=== PATIENT | female | born 1965 | race Caucasian/White ===

== ENCOUNTER 2016-08-21 10:43 | Inpatient (IN) | payer OTHER ==
[2016-08-21] MEDS ORDERED: ONDANSETRON DISINTEGRATING 4 MG TAB PO PRN (13:25)
[2016-08-21] MEDS ORDERED: ACETAMINOPHEN 325 MG TAB PO PRN (13:25)
[2016-08-21] MEDS ORDERED: ONDANSETRON 4 MG/2 ML VIAL IVP PRN (13:25)
[2016-08-21] MEDS ORDERED: NS 1,000 ML IV ONE ×2 (14:00→19:00)
[2016-08-21] MEDS ORDERED: OXYCODONE/APAP 5/325 TAB PO PRN (14:11)
[2016-08-21] MEDS ORDERED: oxyCODONE IR 5 MG TAB PO PRN (14:12)
[2016-08-21] MEDS ORDERED: LIDOCAINE/PRILOCAINE 1 EACH CRTUBE TP SCH (14:15)
--- NOTE | 2016-08-21 15:16 | GHP ---
[f rep st] HISTORY AND PHYSICAL DATE OF ADMISSION: 08/21/2016 CHIEF COMPLAINT: Presenting for chemotherapy. HISTORY OF PRESENT ILLNESS: A 50-year-old female with a history of mantle cell lymphoma, presenting for chemotherapy upon arrival to the floor. The patient is denying any shortness of breath, chest pain, lightheadedness, vision changes, dysphagia, chest pain. No nausea, vomiting, diarrhea, dysuri a, hematuria, lower extremity edema, myalgias, or rashes. She has had no known recent sick contacts . PAST MEDICAL HISTORY: Mantle cell lymphoma. SOCIAL HISTORY: Negative for tobacco and alcohol. She does use occasional CBD products to help wit h her appetite. FAMILY HISTORY: Positive for Hodgkin lymphoma. REVIEW OF SYSTEMS: A 10-point review of systems is negative with the exception of that reported in the HPI. PHYSICAL EXAMINATION: VITAL SIGNS: Blood pressure 105/70, heart rate 102, respiratory rate 18, 97% on room air, 36.7. GENERAL: This is a thin-appearing female in no acute distress. HEENT: Notabl e for moist mucous membranes. Eye exam is negative for any icterus. CARDIAC: Patient is regular r ate and rhythm. No murmurs, gallops, or rubs. PULMONARY: Clear to auscultation bilaterally. ANU ROINTESTINAL: Positive bowel sounds. Abdomen soft and nontender in all 4 quadrants. MUSCULOSKELET AL: Negative for any lower extremity edema. SKIN: Negative for any rashes. NEUROLOGIC: Patient is alert and oriented x3. PSYCHIATRIC: She is pleasant and cooperative on interview and examinatio n. DATA: White count is 11.6, hematocrit 30.6, platelets 157. ASSESSMENT AND PLAN: This is a 50-year-old female with a history of mantle cell presenting for chem otherapy. 1. Mantle cell lymphoma. Patient is presenting for her [facility]. She has received CHOP already. The patient is without complaint. Will follow chemotherapy orders per Oncology. 2. Severe protein-calorie malnutrition. Patient has had approximately an 8 pounds weight loss in t he past several months. We will encourage nourishment and dietary consultation. 3. Tachycardia. I will order EKG. Suspect this is likely the stress of the acute presentation and nothing more. Patient has received normal saline pre-chemotherapy. Will continue to monitor. 4. Prophylaxis with Lovenox. 5. Diet: Regular. DISPOSITION: I expect greater than 2 midnights after she stabilized post chemotherapy. I discussed the case with Oncology. The patient will be admitted and initiate chemo today. /[id number]/MODL
[2016-08-21] MEDS ORDERED: FAMOTIDINE 20 MG/NACL 50 ML IV SCH (15:30)
[2016-08-21] MEDS ORDERED: ACETAMINOPHEN 325 MG TAB PO SCH (15:30)
[2016-08-21] MEDS ORDERED: NS IV SCH ×2 (16:00→22:00)
[2016-08-21] MEDS ORDERED: RITUXIMAB IV SCH (16:00)
[2016-08-21] MEDS: DEXAMETHASONE 4 MG TAB PO SCH (16:23)
--- NOTE | 2016-08-21 16:37 | CPEKG ---
Heart Rate: 95 RR Interval: 632 P-R Interval: 116 QRSD Interval: 78 QT Interval: 384 QTC Interval: 483 P Quemado: 79 QRS Quemado: 76 T Wave Quemado: 57 EKG Severity - NORMAL ECG - EKG Impression: SINUS RHYTHM Electronically Signed By: Cj Ryan 22-Aug-2016 12:45:15
[2016-08-21] MEDS ORDERED: PALONOSETRON HCL 0.25 MG/5 ML VIAL IVP SCH (21:30)
[2016-08-21] MEDS ORDERED: FOSAPREPITANT 150 MG in NS 150 ML IV SCH (21:30)
[2016-08-21] MEDS ORDERED: CISPLATIN IV SCH (22:00)
[2016-08-21] MEDS: LORazepam 0.5 MG TAB PO SCH (22:31)
--- NOTE | 2016-08-21 23:22 | GCON ---
[f rep st] CONSULTATION ONCOLOGY INITIAL VISIT PRIMARY ONCOLOGIST: Dr. Carmelo Merino. REASON FOR VISIT: Chemotherapy for mantle cell lymphoma. HISTORY OF PRESENT ILLNESS: Roseline is a 50-year-old woman who was diagnosed in early July with a st age SOULEYMANE mantle cell lymphoma. Main symptoms she had at the time of diagnosis were crampy abdominal pain and [address] scan. She had splenomegaly in both the adenopathy. There was CD 20, CD 5 positive malignancy expressing cyclin D1, consistent with mantle cell lymphoma. She st arted on the regimen with rituximab plus CHOP, alternating with rituximab plus DHAP with Neulasta oreilly pport. She received the 1st cycle of CHOP and tolerated it reasonably well. She has stopped losing weight and is feeling better but has not been able to regain weight yet. She has no acute complain ts today. She is admitted today to start her 1st cycle of RDHAP. The only issue she had with the 1 st cycle was she did have some mild infusion reactions with rituximab. PAST MEDICAL HISTORY: She has no known drug allergies. MEDICATIONS: At home include Percocet as needed, omeprazole, Lamictal, lorazepam, prednisone with C HOP chemotherapy, bupropion, Ritalin, Nuvigil. PAST MEDICAL HISTORY: Chronic illnesses include depression and cancer as described above. PAST SURGICAL HISTORY: Includes laparoscopic surgery on her uterus. PRIMARY CARE PEDIATRICIAN HISTORY: She has been twice with 2 children. Went through menopause at age 46. SOCIAL HISTORY: She lives in [place] with her daughter and is a nurse at [employer]. She does not use IV drugs and does not smoke. She has a couple drinks a week. FAMILY HISTORY: Significant for father who had lymphoma and of multiple myeloma at age 90. Mo ther may have had a history of CLL. REVIEW OF SYSTEMS: Ten point review of systems performed, pertinent positives in HPI, otherwise neg ative. PHYSICAL EXAMINATION: VITAL SIGNS: Today temperature is 36.7, pulse 102, blood pressure 105/70. G ENERAL: She is a well-appearing woman in good spirits. No distress. HEENT: Sclerae nonicteric. Oral mucosa is unremarkable. LUNGS: Clear. CARDIAC: Mildly tachycardic but regular with just a s oft flow murmur. ABDOMEN: Soft, nontender. Spleen is still palpable but nontender. Port is in th e right upper chest area without signs of infection. NEUROLOGICAL: Grossly intact. LABS: White count 11,000, hemoglobin 9.4, platelet count 157,000. Chemistries and LFTs including c reatinine 0.7, otherwise unremarkable. LDH 521, it was a 1000 at the time of therapy. IMPRESSION: Stage IV mantle cell lymphoma on chemotherapy. PLAN: Admit her for rituximab plus DHAP. Cisplatin will be given over 24 hour infusion and high-do se cytarabine will be started on the 2nd day, given over 3 hours, 12 hours apart for just 2 doses. She also received dexamethasone for 4 days. Prior to starting the chemotherapy, she will receive ri tuximab and hopefully that will go better with fewer reactions than the 1st time. I will follow ananda ford with her while she is in the hospital. /[id number]/MODL
[2016-08-22] MEDS ORDERED: PALONOSETRON HCL 0.25 MG/5 ML VIAL IVP ONE (02:00)
[2016-08-22 04:56] LABS: % IMMATURE GRANULYOCYTES 1.2 % (0.0-1.1); ABSOLUTE IMMATURE GRANULOCYTES 0.19 10^3/uL (0.00-0.10); ADD DIFF? NO; ADD MORPH? NO; ADD SCAN? NO; ATYPICAL LYMPHOCYTE FLAG 30 (0-99); FRAGMENT RBC FLAG 0 (0-99); HEMATOCRIT 24.9 % (38.0-47.0); HEMOGLOBIN 7.5 g/dL (12.6-16.3); LEFT SHIFT FLG 10 (0-99); LIPEMIA HEMOLYSIS FLAG 80 (0-99); MEAN CELL HEMOGLOBIN 26.4 pg (27.9-34.1); MEAN CELL HEMOGLOBIN CONCENTR. 30.1 g/dL (32.4-36.7); MEAN CELL VOLUME 87.7 fL (81.5-99.8); MEAN PLATELET VOLUME 9.8 fL (8.7-11.7); PLATELET CLUMPS FLAG 0 (0-99); PLATELET COUNT 122 10^3/uL (150-400); RED BLOOD CELL COUNT 2.84 10^6/uL (4.18-5.33); RED CELL DISTRIBUTION WIDTH 19.2 % (11.5-15.2)
[2016-08-22 05:16] LABS: ALANINE AMINOTRANSFERASE 36 IU/L (9-52); ALKALINE PHOSPHATASE 113 IU/L (38-126); ASPARTATE AMINOTRANSFERASE 43 IU/L (14-46); BILIRUBIN,TOTAL 0.2 mg/dL (0.1-1.4); CALCIUM 8.5 mg/dL (8.5-10.4); CARBON DIOXIDE 23 mEq/l (22-31); CHLORIDE 108 mEq/L (97-110); CREATININE 0.6 mg/dL (0.6-1.0); GLOMERULAR FILTRATION RATE > 60; GLUCOSE 177 mg/dL (70-100); SODIUM 141 mEq/L (134-144); TOTAL PROTEIN 6.4 g/dL (6.3-8.2)
[2016-08-22 05:17] LABS: ANION GAP 10 mEq/L (8-16); POTASSIUM 3.6 mEq/L (3.5-5.2)
[2016-08-22] MEDS: prednisoLONE ACET 1% 5 ML OPHT.BTL EACHEYE SCH ×4 (06:36→23:33)
[2016-08-22] MEDS ORDERED: METHYLPHENIDATE HCL 20 MG PO SCH (09:00)
[2016-08-22] MEDS: buPROPion SR 150 MG TAB PO SCH (09:47)
[2016-08-22] MEDS: PANTOPRAZOLE SODIUM 40 MG TAB PO SCH (09:47)
[2016-08-22] MEDS: ENOXAPARIN 40 MG/0.4 ML SYR SC SCH (09:48)
[2016-08-22] MEDS: lamoTRIgine 100 MG TAB PO SCH (09:48)
[2016-08-22] MEDS: Armodafinil [Nuvigil 250mg] 250 MG PO SCH (12:30)
[2016-08-22] MEDS: METHYLPHENIDATE HCL 20 MG PO SCH (13:54)
--- NOTE | 2016-08-22 14:21 | SOAPPROG ---
SOLE[facility] Progress Note Assessment/Plan: E&M for Mantle Cell * Mantle Cell NHL on RCHOP/RDHAP: Day 2, cycle 2 of R-DHAP and doing well. Cisplatin ends early tomorrow morning and will start MAGALY-c after. She is to continue hi dose dex. * ADHD/Depression: would like her to take her home meds Subjective: No problems with chemotherapy. Denies n/v. Sisters with patient. Objective: Vital Signs Temp Pulse Resp BP Pulse Ox 36.7 C 108 H 16 104/69 96 08/22/16 12:31 08/22/16 12:31 08/22/16 12:31 08/22/16 12:31 08/22/16 12:31 Laboratory Results 08/22/16 04:00 08/22/16 04:00 08/21/16 08/22/16 08/23/16 05:59 05:59 05:59 Intake Total 1612.6 Output Total 475 Balance 1137.6 Physical Exam - Physical Exam General Appearance: no apparent distress Respiratory: normal breath sounds Cardiac/Chest: regular rate, rhythm Abdomen: non-tender, soft ICD10 Worksheet Patient Problems: Problems Problem Status Onset Mantle cell lymphoma of intra-abdominal lymph nodes Chronic
[2016-08-22] MEDS: DEXAMETHASONE 4 MG TAB PO SCH (15:42)
--- NOTE | 2016-08-22 16:56 | HOSPPROG ---
Hospitalist Progress Note Assessment/Plan: # Mantle Cell Lymphoma - patient tolerated chemotherapy overnight- WBC 15.5 this morning tolerating p.o. and without pain complaints - continue chemotherapy per Oncology # tachycardia- EKG ( personally reviewed and interpreted) sinus rhythm without acute changes oxygen saturations 95% on room air seems intermittent may be related to anxiety - encourage p.o. - monitor closely # prophylaxis Lovenox # diet regular # disposition greater than 2 midnights as the patient is requiring a full course chemotherapy I have discussed the case with the oncologist- patient is tolerating the 1st part of her treatment while Subjective: slept well Objective: Vital Signs Temp Pulse Resp BP Pulse Ox 36.8 C 102 H 16 106/58 L 95 08/22/16 16:26 08/22/16 16:26 08/22/16 16:26 08/22/16 16:26 08/22/16 16:26 Laboratory Results 08/22/16 04:00 08/22/16 04:00 08/21/16 08/22/16 08/23/16 05:59 05:59 05:59 Intake Total 1612.6 Output Total 475 Balance 1137.6 - Physical Exam Constitutional: cachectic Eyes: anicteric sclera Ears, Nose, Mouth, Throat: moist mucous membranes Cardiovascular: regular rate and rhythym Respiratory: no respiratory distress, no rales or rhonchi Gastrointestinal: normoactive bowel sounds, soft, non-tender abdomen Genitourinary: no bladder fullness Skin: warm, normal color Musculoskeletal: No asymmetric calves Neurologic: AAOx3 Psychiatric: interacting appropriately, not anxious Lymph, Heme, Immunologic: no cervical LAD ICD10 Worksheet Patient Problems: Problems Problem Status Onset Mantle cell lymphoma of intra-abdominal lymph nodes Chronic
[2016-08-22] MEDS: LORazepam 0.5 MG TAB PO SCH (20:55)
[2016-08-22] MEDS ORDERED: NS 1,000 ML IV ONE (22:00)
[2016-08-23] MEDS ORDERED: LORazepam 0.5 MG TAB PO ONE (04:30)
[2016-08-23] MEDS: prednisoLONE ACET 1% 5 ML OPHT.BTL EACHEYE SCH ×3 (05:41→17:11)
[2016-08-23] MEDS: lamoTRIgine 100 MG TAB PO SCH (08:16)
[2016-08-23] MEDS: PANTOPRAZOLE SODIUM 40 MG TAB PO SCH (08:16)
[2016-08-23] MEDS: buPROPion SR 150 MG TAB PO SCH (08:16)
[2016-08-23] MEDS: METHYLPHENIDATE HCL 20 MG PO SCH (08:23)
[2016-08-23 08:47] LABS: % IMMATURE GRANULYOCYTES 1.5 % (0.0-1.1); ABSOLUTE IMMATURE GRANULOCYTES 0.19 10^3/uL (0.00-0.10); ADD DIFF? NO; ADD MORPH? NO; ADD SCAN? NO; ATYPICAL LYMPHOCYTE FLAG 0 (0-99); FRAGMENT RBC FLAG 0 (0-99); HEMATOCRIT 23.9 % (38.0-47.0); HEMOGLOBIN 7.3 g/dL (12.6-16.3); LEFT SHIFT FLG 20 (0-99); LIPEMIA HEMOLYSIS FLAG 80 (0-99); MEAN CELL HEMOGLOBIN 26.7 pg (27.9-34.1); MEAN CELL HEMOGLOBIN CONCENTR. 30.5 g/dL (32.4-36.7); MEAN CELL VOLUME 87.5 fL (81.5-99.8); MEAN PLATELET VOLUME 9.7 fL (8.7-11.7); PLATELET CLUMPS FLAG 0 (0-99); PLATELET COUNT 110 10^3/uL (150-400); RED BLOOD CELL COUNT 2.73 10^6/uL (4.18-5.33); RED CELL DISTRIBUTION WIDTH 19.9 % (11.5-15.2)
[2016-08-23 09:00] LABS: ALANINE AMINOTRANSFERASE 47 IU/L (9-52); ALKALINE PHOSPHATASE 104 IU/L (38-126); ANION GAP 9 mEq/L (8-16); ASPARTATE AMINOTRANSFERASE 34 IU/L (14-46); BILIRUBIN,TOTAL 0.3 mg/dL (0.1-1.4); CALCIUM 8.4 mg/dL (8.5-10.4); CARBON DIOXIDE 25 mEq/l (22-31); CHLORIDE 109 mEq/L (97-110); CREATININE 0.6 mg/dL (0.6-1.0); GLOMERULAR FILTRATION RATE > 60; GLUCOSE 108 mg/dL (70-100); POTASSIUM 3.9 mEq/L (3.5-5.2); SODIUM 143 mEq/L (134-144); TOTAL PROTEIN 6.3 g/dL (6.3-8.2)
[2016-08-23] MEDS: ENOXAPARIN 40 MG/0.4 ML SYR SC SCH (09:44)
[2016-08-23] MEDS: CYTARABINE IV SCH ×2 (09:50→20:55)
[2016-08-23] MEDS: NS IV SCH ×2 (09:50→20:55)
--- NOTE | 2016-08-23 12:01 | HOSPPROG ---
Hospitalist Progress Note Assessment/Plan: # Mantle Cell Lymphoma - patient tolerated chemotherapy overnight- WBC 15->12 this morning tolerating p.o. and without pain complaints - continue chemotherapy per Oncology # tachycardia- HR fluctuating 80-> 120 EKG - sinus rhythm without acute changes oxygen saturations 95% on room air seems intermittent may be related to anxiety - encourage p.o. - monitor closely # prophylaxis Lovenox # diet regular # disposition greater than 2 midnights as the patient is requiring a full course chemotherapy I have discussed the case with the oncologist- continue current course - patient tolerating treatment well Subjective: denies pain Objective: Vital Signs Temp Pulse Resp BP Pulse Ox 36.8 C 123 H 16 100/78 91 L 08/23/16 08:17 08/23/16 10:20 08/23/16 08:17 08/23/16 08:17 08/23/16 10:20 Laboratory Results 08/23/16 08:18 08/23/16 08:18 08/22/16 08/23/16 08/24/16 05:59 05:59 05:59 Intake Total 1612.6 1960 1000 Output Total 475 2250 Balance 1137.6 -290 1000 - Physical Exam Constitutional: cachectic Eyes: anicteric sclera Ears, Nose, Mouth, Throat: moist mucous membranes Cardiovascular: tachycardia Respiratory: no respiratory distress, no rales or rhonchi Gastrointestinal: normoactive bowel sounds, soft, non-tender abdomen Genitourinary: no bladder fullness Skin: warm, normal color Musculoskeletal: No asymmetric calves Neurologic: AAOx3 Psychiatric: interacting appropriately Lymph, Heme, Immunologic: no cervical LAD ICD10 Worksheet Patient Problems: Problems Problem Status Onset Mantle cell lymphoma of intra-abdominal lymph nodes Chronic
[2016-08-23] MEDS: Armodafinil [Nuvigil 250mg] 250 MG PO SCH (12:54)
[2016-08-23] MEDS ORDERED: PROCHLORPERAZINE MALEATE 10 MG TAB PO PRN (14:45)
--- NOTE | 2016-08-23 14:48 | SOAPPROG ---
SOAP Progress Note Assessment/Plan: E&M for Mantle Cell * Mantle Cell NHL on RCHOP/RDHAP: Day 3, cycle 2 with R-DHAP and doing well. MAGALY -c finishes late tonight. She is to continue hi dose dex. * ADHD/Depression: would like her to take her home meds * Anemia: will give blood today as she may becoming more symptomatic. Subjective: Some fatigue and mild nausea. Insomnia from steroids. Objective: Vital Signs Temp Pulse Resp BP Pulse Ox 36.8 C 93 16 120/75 97 08/23/16 12:05 08/23/16 12:05 08/23/16 12:05 08/23/16 12:05 08/23/16 12:05 Laboratory Results 08/23/16 08:18 08/23/16 08:18 08/22/16 08/23/16 08/24/16 05:59 05:59 05:59 Intake Total 1612.6 1960 1300 Output Total 475 2250 200 Balance 1137.6 -290 1100 Physical Exam - Physical Exam General Appearance: no apparent distress EENT: pharynx normal Respiratory: lungs clear Cardiac/Chest: regular rate, rhythm Abdomen: non-tender, soft ICD10 Worksheet Patient Problems: Problems Problem Status Onset Mantle cell lymphoma of intra-abdominal lymph nodes Chronic
[2016-08-23] MEDS: LORazepam 0.5 MG TAB PO PRN (14:54)
[2016-08-23] MEDS: DEXAMETHASONE 4 MG TAB PO SCH (15:49)
[2016-08-23] MEDS ORDERED: diphenhydrAMINE 25 MG CAP PO ONE (17:00)
[2016-08-23] MEDS: LORazepam 0.5 MG TAB PO SCH (21:00)
[2016-08-24] MEDS: prednisoLONE ACET 1% 5 ML OPHT.BTL EACHEYE SCH ×2 (00:12→06:04)
[2016-08-24] MEDS: LORazepam 0.5 MG TAB PO PRN ×2 (03:41→09:43)
[2016-08-24 08:34] VITALS: BP 123/74; PULSE 76; RESP 18; TEMP 98.2; O2SAT 95
[2016-08-24] MEDS: PANTOPRAZOLE SODIUM 40 MG TAB PO SCH (09:01)
[2016-08-24] MEDS: lamoTRIgine 100 MG TAB PO SCH (09:01)
[2016-08-24] MEDS: buPROPion SR 150 MG TAB PO SCH (09:02)
[2016-08-24] MEDS: METHYLPHENIDATE HCL 20 MG PO SCH (09:03)
[2016-08-24] MEDS: ENOXAPARIN 40 MG/0.4 ML SYR SC SCH (09:04)
[2016-08-24 09:15] LABS: HEMATOCRIT 31.9 % (38.0-47.0); HEMOGLOBIN 10.2 g/dL (12.6-16.3); MEAN CELL HEMOGLOBIN 26.9 pg (27.9-34.1); MEAN CELL VOLUME 84.2 fL (81.5-99.8); RED BLOOD CELL COUNT 3.79 10^6/uL (4.18-5.33)
[2016-08-24 09:38] LABS: ANION GAP 10 mEq/L (8-16); CALCIUM 8.7 mg/dL (8.5-10.4); CARBON DIOXIDE 25 mEq/l (22-31); CHLORIDE 104 mEq/L (97-110); CREATININE 0.7 mg/dL (0.6-1.0); GLOMERULAR FILTRATION RATE > 60; GLUCOSE 95 mg/dL (70-100); POTASSIUM 4.4 mEq/L (3.5-5.2); SODIUM 139 mEq/L (134-144)
--- NOTE | 2016-09-21 10:35 | GDS ---
[f rep st] DISCHARGE SUMMARY DIAGNOSES: 1. Mantle cell lymphoma. 2. Sinus tachycardia. CONSULTATIONS: Dr. Aldrich of Oncology. HOSPITAL COURSE: The patient is a 50-year-old woman with a known mantle cell lymphoma. She was adm itted to the hospital for planned scheduled chemotherapy which she received without any complication s or significant side effects. She did have some sinus tachycardia briefly during her hospital stay , but there was no sign of infection, sepsis, bleeding, or other concerning etiology for that. She was discharged to home in stable condition on the 24 of August. Follow up with the [facility] in 3 days after discharge. She understands to notify her oncology team for any fevers, respiratory or other concerning symptoms. /[id number]/MODL
== END 2016-08-24 13:29 | disposition home or self-care (01) | DRG 846 ==
LOC: F1N 12:16
PROVIDERS: ADMIT Hospitalist; ATTEND Hospitalist
DX: Z51.11 Encounter for antineoplastic chemotherapy (principal); C83.13 Mantle cell lymphoma, intra-abdominal lymph nodes; E43 Unspecified severe protein-calorie malnutrition; R00.0 Tachycardia, unspecified; F90.9 Attention-deficit hyperactivity disorder, unspecified type; F32.9 Major depressive disorder, single episode, unspecified; D64.9 Anemia, unspecified
CPT/HCPCS: J1200; J1453; J1642; J1650; J2469; J9060; J9100; J9310; P9040

== ENCOUNTER 2016-10-02 08:19 | Inpatient (IN) | payer OTHER ==
[2016-10-02] MEDS ORDERED: LIDOCAINE/PRILOCAINE 1 EACH CRTUBE TP ONE (12:15)
[2016-10-02 13:29] LABS: % IMMATURE GRANULYOCYTES 0.8 % (0.0-1.1); ABSOLUTE IMMATURE GRANULOCYTES 0.08 10^3/uL (0.00-0.10); ADD DIFF? NO; ADD MORPH? YES; ADD SCAN? NO; ATYPICAL LYMPHOCYTE FLAG 70 (0-99); FRAGMENT RBC FLAG 0 (0-99); HEMATOCRIT 27.6 % (38.0-47.0); HEMOGLOBIN 8.8 g/dL (12.6-16.3); LEFT SHIFT FLG 0 (0-99); LIPEMIA HEMOLYSIS FLAG 80 (0-99); MEAN CELL HEMOGLOBIN 28.4 pg (27.9-34.1); MEAN CELL HEMOGLOBIN CONCENTR. 31.9 g/dL (32.4-36.7); MEAN PLATELET VOLUME 9.5 fL (8.7-11.7); PLATELET CLUMPS FLAG 10 (0-99); PLATELET COUNT 146 10^3/uL (150-400)
[2016-10-02 13:30] LABS: RED CELL DISTRIBUTION WIDTH 20.9 % (11.5-15.2)
[2016-10-02] MEDS ORDERED: ACETAMINOPHEN 325 MG TAB PO ONE (13:30)
[2016-10-02] MEDS ORDERED: diphenhydrAMINE 25 MG CAP PO ONE (13:30)
[2016-10-02 13:31] LABS: ALANINE AMINOTRANSFERASE 25 IU/L (9-52); ALBUMIN 3.5 g/dL (3.5-5.0); ALKALINE PHOSPHATASE 107 IU/L (38-126); ANION GAP 8 mEq/L (8-16); ASPARTATE AMINOTRANSFERASE 20 IU/L (14-46); BILIRUBIN,TOTAL 0.3 mg/dL (0.1-1.4); CALCIUM 8.7 mg/dL (8.5-10.4); CARBON DIOXIDE 27 mEq/l (22-31); CHLORIDE 103 mEq/L (97-110); CREATININE 0.6 mg/dL (0.6-1.0); GLOMERULAR FILTRATION RATE > 60; GLUCOSE 116 mg/dL (70-100); POTASSIUM 4.3 mEq/L (3.5-5.2); SODIUM 138 mEq/L (134-144); TOTAL PROTEIN 6.8 g/dL (6.3-8.2)
[2016-10-02] MEDS: DEXAMETHASONE 4 MG TAB PO SCH (13:44)
[2016-10-02] MEDS: buPROPion XL 150 MG TAB PO SCH (13:46)
[2016-10-02] MEDS ORDERED: NS IV ONE (14:00)
[2016-10-02] MEDS ORDERED: RITUXIMAB IV ONE (14:00)
--- NOTE | 2016-10-02 14:01 | GCON ---
[f rep st] CONSULTATION MEDICAL ONCOLOGY CONSULTATION HISTORY OF PRESENT ILLNESS: The patient is a 50-year-old female who was diagnosed with a mantle rachid l lymphoma in July of 2016. This was staged as SOULEYMANE. She presented with weight loss and crampy abdo jose antonio pain and was found to have significant splenomegaly, as well as bulky adenopathy in the mesent michelle and retroperitoneal space. She has mantle cell lymphoma, including expression of cyclin D1 and an 11;14 translocation. She has been treated with alternating R-CHOP and R-DHAP. She is admitted t jeaneth for her fourth cycle of chemotherapy, which would be her second cycle of R-DHAP. Therapy has b een complicated by some nausea, fatigue, and some degree of anorexia. Prior to this issue, she has been generally healthy. She does have a history of some depression. She has had 2 pregnancies, darlene t through menopause at age 46. She is a nurse at [employer]. Her father had lymphoma and of multiple myeloma at age 90. Mother may have had CLL. REVIEW OF SYSTEMS: Negative, except as discussed above. PHYSICAL EXAMINATION: GENERAL: Today, she is very pleasant female, in no acute distress. VITAL SIG NS: Blood pressure 104/78. Pulse is 102. She is afebrile. LYMPHATIC: I detect no adenopathy. EN T: Pharynx is unremarkable. She has a port in her right anterior chest. LUNGS: Clear. CARDIAC: Exam is unremarkable. ABDOMEN: Benign, although her spleen is palpable under the left lower costal margin. I detect no obvious adenopathy. LABORATORY DATA: White count as of 09/29 was 9.68, hemoglobin 10, hematocrit 31.8, platelets 136,00 0. Counts are pending from today. Chest CT scan from 09/08 showed improving pelvic and inguinal ad enopathy, decreasing spleen size. She had persistent mediastinal and axillary adenopathy. IMPRESSION: Patient with mantle cell lymphoma. I think she is okay for R-DHAP today. She has had reactions to Rituxan in the past, so we will infuse slowly. She will follow up with Dr. Aldrich at th is point and receive Neulasta after discharge from the hospital. We will add low-dose Zyprexa to tr y to stimulate her appetite. He is planning on a PET-CT scan after this cycle of treatment. /[id number]/MODL
[2016-10-02 14:08] LABS: PLATELET ESTIMATE DECREASED (ADEQ)
[2016-10-02 14:10] LABS: MACROCYTES 1+; MICROCYTES 1+; POLYCHROMASIA 1+
[2016-10-02] MEDS ORDERED: ONDANSETRON DISINTEGRATING 4 MG TAB PO PRN (15:00)
[2016-10-02] MEDS ORDERED: PROCHLORPERAZINE MALEATE 10 MG TAB PO PRN (15:00)
[2016-10-02] MEDS ORDERED: NON-FORMULARY NEW DRUG (Oxycodone Hcl/Acetaminophen [Percocet 10-325 Mg Tablet] 1 EACH) PO PRN (15:00)
[2016-10-02] MEDS ORDERED: OXYCODONE/APAP 5/325 TAB PO PRN (15:03)
[2016-10-02] MEDS ORDERED: ACETAMINOPHEN 325 MG TAB PO PRN (15:31)
--- NOTE | 2016-10-02 16:27 | GHP ---
[f rep st] HISTORY AND PHYSICAL DATE OF ADMISSION: 10/02/2016 HISTORY OF PRESENT ILLNESS: The patient is a pleasant 50-year-old female with history of mantle rachid l lymphoma who was admitted for elective chemotherapy. When I speak with the patient, she denies re cent fevers, chills, cough, nausea, vomiting, or diarrhea. She has been eating well, not constipate d, and really has no other concerning factors. REVIEW OF SYSTEMS: Complete 10-point review of systems conducted negative except as noted in the HP I. PAST MEDICAL HISTORY: Mantle cell lymphoma. SOCIAL HISTORY: She lives in [place]. No tobacco. Minimal alcohol. FAMILY HISTORY: Notable for father with atrial fibrillation. ALLERGIES: No known drug allergies. HOME MEDICATIONS: Armodafinil, bupropion, lamotrigine, lorazepam, methylphenidate, omeprazole, Perc ocet, prochlorperazine. PHYSICAL EXAMINATION: VITAL SIGNS: Temperature 37.1, blood pressure 94/62, pulse 86, breathing 18 times a minute, 94% on room air. GENERAL: No acute distress. HEENT: Sclerae anicteric. Orophary nx clear. Mucous membranes moist. NECK: Supple. No lymphadenopathy or JVD. LUNGS: Clear to aus cultation bilaterally. HEART: S1, S2. Her port site is clean, dry and intact without fluctuance o r erythema. ABDOMEN: Soft, nontender, nondistended. LOWER EXTREMITIES: Without edema. Calves no ntender. SKIN: Without rash. NEUROLOGIC: Nonfocal. LABORATORY DATA: White count 9.6, hematocrit 27.6, platelets are 146,000. Sodium 138, potassium 4. 3, chloride 103, bicarb 27, BUN 13, creatinine 0.6, glucose 116. LFTs normal. I discussed the case with Dr. Med Harper. ASSESSMENT/PLAN: A 50-year-old female with lymphoma here for chemotherapy. 1. Mantle cell lymphoma. Chemotherapy as per Oncology. 2. History of thrombocytopenia. She had thrombocytopenia in the setting of chemotherapy. Will hol d pharmacologic deep venous thrombosis prophylaxis for the time being. 3. Splenomegaly. This is mild. It is relatively nontender and it is getting smaller. We will fol low. 4. Tachycardia. The patient had a heart rate of 102 on presentation. She appears euvolemic. We w ill follow. She may have been anxious. 5. 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 Will follow. No evidence of blood loss. 6. Hyperglycemia. This glucose of 116 is a nonfasting sample. We will follow. 7. Prophylaxis. Pharmacologic prophylaxis indicated. I will discuss in greater length the use of [id number]-[id number] heparin before the platelets kelly with Dr. Harper. 8. Disposition: Inpatient status. /[id number]/MODL
[2016-10-02] MEDS: METHYLPHENIDATE HCL 20 MG PO SCH (20:18)
[2016-10-02] MEDS: OLANZapine 2.5 MG TAB PO SCH (22:24)
[2016-10-02] MEDS: LORazepam 0.5 MG TAB PO SCH (22:24)
[2016-10-03] MEDS: LORazepam 0.5 MG TAB PO PRN (00:23)
[2016-10-03] MEDS ORDERED: MAGNESIUM SULFATE IV ONE (04:00)
[2016-10-03] MEDS ORDERED: NS IV ONE ×3 (04:00→09:00)
[2016-10-03] MEDS ORDERED: POTASSIUM CL IV ONE (04:00)
[2016-10-03 04:55] LABS: % IMMATURE GRANULYOCYTES 0.9 % (0.0-1.1); ADD DIFF? NO; ADD MORPH? YES; ADD SCAN? NO; ATYPICAL LYMPHOCYTE FLAG 40 (0-99); FRAGMENT RBC FLAG 0 (0-99); HEMATOCRIT 26.6 % (38.0-47.0); HEMOGLOBIN 8.6 g/dL (12.6-16.3); LEFT SHIFT FLG 0 (0-99); LIPEMIA HEMOLYSIS FLAG 80 (0-99); MEAN CELL HEMOGLOBIN 28.7 pg (27.9-34.1); MEAN CELL HEMOGLOBIN CONCENTR. 32.3 g/dL (32.4-36.7); MEAN CELL VOLUME 88.7 fL (81.5-99.8); MEAN PLATELET VOLUME 9.4 fL (8.7-11.7); PLATELET CLUMPS FLAG 0 (0-99); PLATELET COUNT 125 10^3/uL (150-400)
[2016-10-03 05:02] LABS: RED CELL DISTRIBUTION WIDTH 20.4 % (11.5-15.2)
[2016-10-03 05:06] LABS: APTT 24.6 SEC (23.0-38.0); INR 1.19 (0.83-1.16); PROTIME(PATIENT) 15.1 SEC (12.0-15.0)
[2016-10-03 05:12] LABS: ANION GAP 10 mEq/L (8-16); CALCIUM 9.2 mg/dL (8.5-10.4); CARBON DIOXIDE 27 mEq/l (22-31); CHLORIDE 105 mEq/L (97-110); CREATININE 0.6 mg/dL (0.6-1.0); GLOMERULAR FILTRATION RATE > 60; GLUCOSE 120 mg/dL (70-100); SODIUM 142 mEq/L (134-144)
[2016-10-03 05:25] LABS: PLATELET ESTIMATE DECREASED (ADEQ)
[2016-10-03 05:27] LABS: HYPOCHROMIA 1+; MICROCYTES 1+
[2016-10-03] MEDS ORDERED: FOSAPREPITANT 150 MG in NS 150 ML IV ONE (08:30)
[2016-10-03] MEDS ORDERED: PALONOSETRON HCL 0.25 MG/5 ML VIAL IVP ONE (08:30)
[2016-10-03] MEDS ORDERED: CISPLATIN IV ONE ×2 (09:00)
[2016-10-03] MEDS ORDERED: LAMOTRIGINE 100 MG PO SCH (09:00)
[2016-10-03] MEDS: buPROPion XL 150 MG TAB PO SCH (10:01)
[2016-10-03] MEDS: lamoTRIgine 100 MG TAB PO SCH (10:01)
[2016-10-03] MEDS: PANTOPRAZOLE SODIUM 40 MG TAB PO SCH (10:02)
[2016-10-03] MEDS: DEXAMETHASONE 4 MG TAB PO SCH (10:12)
--- NOTE | 2016-10-03 10:43 | SOAPPROG ---
SOAP Progress Note Assessment/Plan: Assessment: 1. mantle cell lymphoma on R-DHAP 2. anemia Plan:continue chemo today, infusional cis plat. Good urine output, creatinine stable 10/03/16 10:38 10/03/16 10:43 10/03/16 10:44 Subjective: feels ok Objective: Vital Signs Temp Pulse Resp BP Pulse Ox 98.3 F 81 14 95/57 L 97 10/03/16 09:00 10/03/16 09:00 10/03/16 09:00 10/03/16 09:00 10/03/16 09:00 Laboratory Results 10/03/16 04:30 10/03/16 04:30 10/02/16 10/03/16 10/04/16 05:59 05:59 05:59 Intake Total 1572 1422 Output Total 900 1500 Balance 672 -78 PT 15.1 SEC (12.0-15.0) H 10/03/16 04:30 INR 1.19 (0.83-1.16) H 10/03/16 04:30 Physical Exam - Physical Exam General Appearance: alert, no apparent distress Respiratory: lungs clear Cardiac/Chest: regular rate, rhythm Abdomen: normal bowel sounds, non-tender ICD10 Worksheet Patient Problems: Problems Problem Status Onset Mantle cell lymphoma of intra-abdominal lymph nodes Chronic
[2016-10-03] MEDS: METHYLPHENIDATE HCL 20 MG PO SCH ×2 (12:12→22:29)
[2016-10-03] MEDS: Armodafinil [Nuvigil 150mg] 150 MG PO SCH (12:12)
[2016-10-03] MEDS: DEXAMETHASONE 0.1% 5 ML OPHT.BTL EACHEYE SCH ×3 (13:06→23:32)
--- NOTE | 2016-10-03 15:27 | HOSPPROG ---
Hospitalist Progress Note Assessment/Plan: 50 yo F w mantle cell lymphoma lymphoma: chemo per onc proph: scd's consider lmwh depression: continue meds dispo: inpt Subjective: no compaints Objective: Vital Signs Temp Pulse Resp BP Pulse Ox 36.8 C 95 18 98/62 L 96 10/03/16 12:53 10/03/16 12:53 10/03/16 12:53 10/03/16 12:53 10/03/16 12:53 Laboratory Results 10/03/16 04:30 10/03/16 04:30 10/02/16 10/03/16 10/04/16 05:59 05:59 05:59 Intake Total 1572 1422 Output Total 900 1500 Balance 672 -78 PT 15.1 SEC (12.0-15.0) H 10/03/16 04:30 INR 1.19 (0.83-1.16) H 10/03/16 04:30 - Physical Exam Constitutional: no apparent distress, appears nourished Eyes: PERRL, anicteric sclera Ears, Nose, Mouth, Throat: moist mucous membranes, hearing normal Cardiovascular: regular rate and rhythym, no murmur, rub, or gallop Respiratory: no respiratory distress, no rales or rhonchi Gastrointestinal: normoactive bowel sounds, soft, non-tender abdomen Genitourinary: No vidal in urethra Skin: warm, normal color Musculoskeletal: full muscle strength, no muscle tenderness Neurologic: AAOx3, sensation intact bilaterally ICD10 Worksheet Patient Problems: Problems Problem Status Onset Mantle cell lymphoma of intra-abdominal lymph nodes Chronic
[2016-10-03] MEDS: LORazepam 0.5 MG TAB PO SCH (22:28)
[2016-10-03] MEDS: OLANZapine 2.5 MG TAB PO SCH (22:28)
[2016-10-04 05:25] LABS: % IMMATURE GRANULYOCYTES 1.3 % (0.0-1.1); ABSOLUTE IMMATURE GRANULOCYTES 0.15 10^3/uL (0.00-0.10); ADD DIFF? NO; ADD MORPH? YES; ADD SCAN? NO; ATYPICAL LYMPHOCYTE FLAG 0 (0-99); FRAGMENT RBC FLAG 0 (0-99); HEMATOCRIT 24.8 % (38.0-47.0); LEFT SHIFT FLG 10 (0-99); LIPEMIA HEMOLYSIS FLAG 80 (0-99); MEAN CELL HEMOGLOBIN 29.3 pg (27.9-34.1); MEAN CELL HEMOGLOBIN CONCENTR. 32.3 g/dL (32.4-36.7); MEAN CELL VOLUME 90.8 fL (81.5-99.8); MEAN PLATELET VOLUME 9.6 fL (8.7-11.7); PLATELET CLUMPS FLAG 0 (0-99); PLATELET COUNT 109 10^3/uL (150-400); RED BLOOD CELL COUNT 2.73 10^6/uL (4.18-5.33)
[2016-10-04] MEDS: DEXAMETHASONE 0.1% 5 ML OPHT.BTL EACHEYE SCH ×4 (05:28→23:00)
[2016-10-04 05:32] LABS: RED CELL DISTRIBUTION WIDTH 21.2 % (11.5-15.2)
[2016-10-04 05:48] LABS: ANION GAP 11 mEq/L (8-16); CALCIUM 8.9 mg/dL (8.5-10.4); CARBON DIOXIDE 24 mEq/l (22-31); CHLORIDE 110 mEq/L (97-110); CREATININE 0.6 mg/dL (0.6-1.0); GLOMERULAR FILTRATION RATE > 60; GLUCOSE 128 mg/dL (70-100); POTASSIUM 4.2 mEq/L (3.5-5.2); SODIUM 145 mEq/L (134-144)
[2016-10-04 06:03] LABS: HYPOCHROMIA 1+; MICROCYTES 1+; PLATELET ESTIMATE DECREASED (ADEQ)
[2016-10-04] MEDS ORDERED: POTASSIUM CL IV ONE (09:00)
[2016-10-04] MEDS ORDERED: NS IV ONE (09:00)
[2016-10-04] MEDS ORDERED: MAGNESIUM SULFATE IV ONE (09:00)
[2016-10-04] MEDS: buPROPion XL 150 MG TAB PO SCH (10:14)
[2016-10-04] MEDS: lamoTRIgine 100 MG TAB PO SCH (10:14)
[2016-10-04] MEDS: PANTOPRAZOLE SODIUM 40 MG TAB PO SCH (10:14)
[2016-10-04] MEDS: DEXAMETHASONE 4 MG TAB PO SCH (10:14)
[2016-10-04] MEDS: METHYLPHENIDATE HCL 20 MG PO SCH ×2 (10:34→21:04)
[2016-10-04] MEDS: Armodafinil [Nuvigil 150mg] 150 MG PO SCH (10:34)
--- NOTE | 2016-10-04 11:04 | SOAPPROG ---
SOAP Progress Note Assessment/Plan: Assessment: 1. mantle cell lymphoma on R-DHAP. She feels inguinal nodes have decreased in size 2. anemia Plan:continue chemo today, MAGALY C. Good urine output, creatinine stable. Home tomorrow, Neulasta sunday at [facility]. Possible stem cell transplant, she does have an identical twin. 10/03/16 10:38 10/03/16 10:43 10/03/16 10:44 10/04/16 11:01 Subjective: Feels pretty well Objective: Vital Signs Temp Pulse Resp BP Pulse Ox 98.2 F 83 16 109/69 97 10/04/16 10:12 10/04/16 10:12 10/04/16 10:12 10/04/16 10:12 10/04/16 10:12 Laboratory Results 10/04/16 05:06 10/04/16 05:06 10/03/16 10/04/16 10/05/16 05:59 05:59 05:59 Intake Total 1572 3701 Output Total 900 5295 Balance 672 -1594 PT 15.1 SEC (12.0-15.0) H 10/03/16 04:30 INR 1.19 (0.83-1.16) H 10/03/16 04:30 Physical Exam - Physical Exam General Appearance: alert, no apparent distress Respiratory: lungs clear, normal breath sounds Cardiac/Chest: regular rate, rhythm Abdomen: normal bowel sounds, non-tender Extremities: other (Bilateral subcentimeter inguinal nodes) ICD10 Worksheet Patient Problems: Problems Problem Status Onset Mantle cell lymphoma of intra-abdominal lymph nodes Chronic
--- NOTE | 2016-10-04 13:34 | HOSPPROG ---
Hospitalist Progress Note Assessment/Plan: 50 yo F w mantle cell lymphoma lymphoma: chemo per onc proph: platelets havent really fallen give enox 40 today re eval platelets in AM depression: continue meds dispo: inpt Subjective: feels well. less nausea Objective: Vital Signs Temp Pulse Resp BP Pulse Ox 36.8 C 95 14 136/75 H 100 10/04/16 13:06 10/04/16 13:06 10/04/16 13:06 10/04/16 13:06 10/04/16 13:06 Laboratory Results 10/04/16 05:06 10/04/16 05:06 10/03/16 10/04/16 10/05/16 05:59 05:59 05:59 Intake Total 1572 3701 950 Output Total 900 5295 450 Balance 672 -1594 500 PT 15.1 SEC (12.0-15.0) H 10/03/16 04:30 INR 1.19 (0.83-1.16) H 10/03/16 04:30 - Physical Exam Constitutional: no apparent distress, appears nourished Eyes: PERRL, anicteric sclera Ears, Nose, Mouth, Throat: moist mucous membranes, hearing normal Cardiovascular: regular rate and rhythym, no murmur, rub, or gallop Respiratory: no respiratory distress, no rales or rhonchi Gastrointestinal: normoactive bowel sounds, soft, non-tender abdomen Genitourinary: No vidal in urethra Skin: warm, normal color Musculoskeletal: full muscle strength, no muscle tenderness Neurologic: AAOx3, sensation intact bilaterally ICD10 Worksheet Patient Problems: Problems Problem Status Onset Mantle cell lymphoma of intra-abdominal lymph nodes Chronic
[2016-10-04] MEDS ORDERED: ENOXAPARIN 40 MG/0.4 ML SYR SC ONE (13:45)
[2016-10-04] MEDS: NS IV SCH (16:28)
[2016-10-04] MEDS: CYTARABINE IV SCH (16:28)
[2016-10-04] MEDS: OLANZapine 2.5 MG TAB PO SCH (21:02)
[2016-10-04] MEDS: LORazepam 0.5 MG TAB PO SCH (21:02)
[2016-10-05 04:12] VITALS: O2SAT 96
[2016-10-05] MEDS: NS IV SCH (04:14)
[2016-10-05] MEDS: CYTARABINE IV SCH (04:14)
[2016-10-05] MEDS: DEXAMETHASONE 0.1% 5 ML OPHT.BTL EACHEYE SCH ×2 (04:41→12:12)
[2016-10-05 08:29] LABS: % IMMATURE GRANULYOCYTES 1.2 % (0.0-1.1); ABSOLUTE IMMATURE GRANULOCYTES 0.07 10^3/uL (0.00-0.10); ADD DIFF? NO; ADD MORPH? YES; ADD SCAN? NO; ATYPICAL LYMPHOCYTE FLAG 0 (0-99); FRAGMENT RBC FLAG 0 (0-99); HEMATOCRIT 24.7 % (38.0-47.0); HEMOGLOBIN 7.9 g/dL (12.6-16.3); LEFT SHIFT FLG 0 (0-99); LIPEMIA HEMOLYSIS FLAG 80 (0-99); MEAN CELL HEMOGLOBIN 28.7 pg (27.9-34.1); MEAN CELL VOLUME 89.8 fL (81.5-99.8); MEAN PLATELET VOLUME 9.5 fL (8.7-11.7); PLATELET CLUMPS FLAG 10 (0-99); PLATELET COUNT 103 10^3/uL (150-400); RED BLOOD CELL COUNT 2.75 10^6/uL (4.18-5.33)
[2016-10-05 08:33] LABS: RED CELL DISTRIBUTION WIDTH 21.5 % (11.5-15.2)
[2016-10-05 08:46] LABS: ANION GAP 6 mEq/L (8-16); CALCIUM 8.6 mg/dL (8.5-10.4); CARBON DIOXIDE 26 mEq/l (22-31); CHLORIDE 105 mEq/L (97-110); CREATININE 0.7 mg/dL (0.6-1.0); GLOMERULAR FILTRATION RATE > 60; GLUCOSE 82 mg/dL (70-100); POTASSIUM 4.3 mEq/L (3.5-5.2); SODIUM 137 mEq/L (134-144)
[2016-10-05 09:10] LABS: MACROCYTES 1+; MICROCYTES 2+; PLATELET ESTIMATE DECREASED (ADEQ)
[2016-10-05] MEDS: PANTOPRAZOLE SODIUM 40 MG TAB PO SCH (10:30)
[2016-10-05] MEDS: DEXAMETHASONE 4 MG TAB PO SCH (10:30)
[2016-10-05] MEDS: buPROPion XL 150 MG TAB PO SCH (10:30)
[2016-10-05] MEDS: lamoTRIgine 100 MG TAB PO SCH (10:31)
[2016-10-05] MEDS: METHYLPHENIDATE HCL 20 MG PO SCH (10:33)
[2016-10-05] MEDS: Armodafinil [Nuvigil 150mg] 150 MG PO SCH (10:33)
[2016-10-05] MEDS: LORazepam 0.5 MG TAB PO PRN (11:45)
--- NOTE | 2016-10-05 12:00 | SOAPPROG ---
SOAP Progress Note Assessment/Plan: Assessment: 1. mantle cell lymphoma on R-DHAP. She feels inguinal nodes have decreased in size 2. anemia Plan:Home today, [place] tomorrow, follow up Dr Aldrich 1 week, continue Zyprexa 10/03/16 10:38 10/03/16 10:43 10/03/16 10:44 10/04/16 11:01 10/05/16 11:55 10/05/16 12:01 Subjective: Feels ok low grade nausea, but eating well Objective: Vital Signs Temp Pulse Resp BP Pulse Ox 98.2 F 79 16 101/64 96 10/05/16 04:08 10/05/16 04:08 10/05/16 04:08 10/05/16 04:08 10/05/16 04:08 Laboratory Results 10/05/16 08:10 10/05/16 08:10 10/04/16 10/05/16 10/06/16 05:59 05:59 05:59 Intake Total 3701 3050 Output Total 5249 4150 Balance -1594 -1100 PT 15.1 SEC (12.0-15.0) H 10/03/16 04:30 INR 1.19 (0.83-1.16) H 10/03/16 04:30 ICD10 Worksheet Patient Problems: Problems Problem Status Onset Mantle cell lymphoma of intra-abdominal lymph nodes Chronic
[2016-10-05 12:02] VITALS: BP 108/61; PULSE 85; RESP 14; TEMP 98.7
--- NOTE | 2016-10-05 12:23 | HOSPPROG ---
Hospitalist Progress Note Assessment/Plan: 50 yo F w mantle cell lymphoma lymphoma: chemo per onc proph: platelets havent really fallen give enox 40 today re eval platelets in AM depression: continue meds dispo: home today < 30 minutes on dc Subjective: ready for dc Objective: Vital Signs Temp Pulse Resp BP Pulse Ox 37.1 C 85 14 108/61 96 10/05/16 10:00 10/05/16 10:00 10/05/16 10:00 10/05/16 10:00 10/05/16 10:00 Laboratory Results 10/05/16 08:10 10/05/16 08:10 10/04/16 10/05/16 10/06/16 05:59 05:59 05:59 Intake Total 3701 3050 Output Total 5226 4150 Balance -1594 -1100 PT 15.1 SEC (12.0-15.0) H 10/03/16 04:30 INR 1.19 (0.83-1.16) H 10/03/16 04:30 - Physical Exam Constitutional: no apparent distress, appears nourished Eyes: PERRL, anicteric sclera Ears, Nose, Mouth, Throat: moist mucous membranes, hearing normal Cardiovascular: regular rate and rhythym, no murmur, rub, or gallop Respiratory: no respiratory distress, no rales or rhonchi Gastrointestinal: normoactive bowel sounds, soft, non-tender abdomen Genitourinary: No vidal in urethra Skin: warm, normal color Musculoskeletal: full muscle strength, no muscle tenderness Neurologic: AAOx3 ICD10 Worksheet Patient Problems: Problems Problem Status Onset Mantle cell lymphoma of intra-abdominal lymph nodes Chronic
--- NOTE | 2016-10-05 13:17 | GDS ---
[f rep st] DISCHARGE SUMMARY DISCHARGE DIAGNOSES: Mantle cell lymphoma. HOSPITAL COURSE: Please see admission history and physical by Dr. Jose Vega. Patient presente d for inpatient chemotherapy, which she received and tolerated well. She is discharged home today o n unchanged outpatient pain medication regimen. /[id number]/MODL
== END 2016-10-05 13:19 | disposition home or self-care (01) | DRG 847 ==
LOC: F1N 08:23 → OBSVTOIN 08:23 → F1N 10:15
PROVIDERS: ADMIT Internal Medicine; ATTEND Internal Medicine
DX: Z51.11 Encounter for antineoplastic chemotherapy (principal); C83.13 Mantle cell lymphoma, intra-abdominal lymph nodes; D63.8 Anemia in other chronic diseases classified elsewhere
CPT/HCPCS: J1453; J1642; J1650; J2469; J9060; J9100; J9310

== ENCOUNTER 2016-10-16 14:16 | Outpatient (CLI) | payer OTHER | END 2016-10-16 19:15 | disposition home or self-care (01) | LOC: FOBOP 14:16 | PROVIDERS: ATTEND Internal Medicine Hematology & Oncology | PROC: 30253N1 (ICD-10-PCS; principal; 2016-10-16) | DX: C85.90 Non-Hodgkin lymphoma, unspecified, unspecified site (principal) | CPT/HCPCS: 36430; P9021; J1642 ==

== ENCOUNTER 2016-11-13 11:02 | Inpatient (IN) | payer OTHER ==
[2016-11-13] MEDS ORDERED: ZOLPIDEM TARTRATE 5 MG TAB PO PRN (13:23)
[2016-11-13] MEDS ORDERED: ONDANSETRON DISINTEGRATING 4 MG TAB PO PRN (13:23)
[2016-11-13] MEDS ORDERED: ONDANSETRON 4 MG/2 ML VIAL IVP PRN (13:23)
[2016-11-13] MEDS ORDERED: ACETAMINOPHEN 325 MG TAB PO PRN ×2 (13:23→14:05)
[2016-11-13] MEDS ORDERED: NS 500 ML IV PRN (14:05)
[2016-11-13] MEDS ORDERED: MEPERIDINE 25 MG/ML SYR IVP PRN (14:05)
[2016-11-13] MEDS ORDERED: HYDROCORTISONE 100 MG/2 ML VIAL IVP PRN (14:05)
[2016-11-13] MEDS ORDERED: NS 1,000 ML IV PRN (14:05)
[2016-11-13] MEDS ORDERED: DEXAMETHASONE 10 MG/ML VIAL IVP PRN (14:05)
[2016-11-13] MEDS ORDERED: ACETAMINOPHEN 325 MG TAB PO SCH (15:30)
[2016-11-13] MEDS ORDERED: METHYLPHENIDATE HCL PO PRN (15:45)
[2016-11-13] MEDS: diphenhydrAMINE 25 MG CAP PO SCH ×2 (15:46→20:44)
[2016-11-13] MEDS: DEXAMETHASONE 4 MG TAB PO SCH (15:46)
[2016-11-13] MEDS ORDERED: NS IV SCH ×2 (16:00→22:00)
[2016-11-13] MEDS ORDERED: RITUXIMAB IV SCH (16:00)
[2016-11-13] MEDS ORDERED: FAMOTIDINE 20 MG/NACL 50 ML IV ONE (16:15)
--- NOTE | 2016-11-13 16:20 | GHP ---
[f rep st] HISTORY AND PHYSICAL DATE OF ADMISSION: 11/13/2016 CHIEF COMPLAINT: The patient presents for chemotherapy. HISTORY OF PRESENT ILLNESS: Ms Perez is a 51-year-old female with a diagnosis of mantle cell lymphoma, who is directly admitted to the hospital from the [facility] for her last round of chemotherapy with Rituxan and cisplatin. She has historically tolerated chemo quite well. She reports her weight has been stable. She denies nausea or vomiting. She has had no fevers, chills. No chest pain, shortness of breath, or changes in her bowel or bladder habits. She states once completing her last course of chemo, the plan is to move forward with a stem cell transplant. She is followed by Dr. Aldrich at the [facility]. She overall feels well today and has no specific complaints. Her energy and spirits are good. PAST MEDICAL HISTORY: 1. Mantle cell lymphoma. 2. ADHD. 3. Mood disorder, unspecified. PAST SURGICAL HISTORY: She has a right chest wall port placed this year. MEDICATIONS: Please see [facility] for completed outpatient medication list. ALLERGIES: Rituxan. FAMILY HISTORY: Father had lymphoma and of multiple myeloma. Mother may have had CLL. SOCIAL HISTORY: The patient works as a nurse at [employer] in [place]. She is a nonsmoker. She reports rare alcohol use. She has 2 children ages 17 and 22, who are present at her bedside. REVIEW OF SYSTEMS: A 10-point review of systems was performed and is negative except as per HPI. OBJECTIVE: VITAL SIGNS: Temperature is 36.8, blood pressure 105/71, heart rate 89, respiratory rate 16, she is 99% on room air. GENERAL: The patient is awake, alert, oriented, in no acute distress. HEENT: Head is atraumatic, normocephalic. Pupils are equally round and reactive to light. Extraocular muscles intact. Oropharynx is clear. Mucous members are moist. NECK: Supple. There is no JVD. HEART: Regular rate and rhythm without murmur. LUNGS: Clear to auscultation bilaterally. ABDOMEN: Soft, nondistended, nontender with no hepatosplenomegaly detected. Normoactive bowel sounds are present. EXTREMITIES: Without cyanosis, clubbing, or edema. NEUROLOGIC: Grossly nonfocal. LABORATORY DATA: CBC this morning reveals a blood count of 6.5, hemoglobin 9.2 , platelets are 154. Complete metabolic panel shows normal electrolytes. Normal kidney function with creatinine of 0.7 and glucose of 100. ASSESSMENT/PLAN: Ms Perez is a 51-year-old female with history of mantle cell lymphoma, who is admitted to the hospital for chemotherapy. 1. Mantle cell lymphoma. She is undergoing her last cycle of chemotherapy with Rituxan and cisplatin per Oncology. Will keep a close eye on her blood counts and provide supportive care. Dexamethasone per oncology. 2. Anemia. Hemoglobin is stable and there is no evidence of active bleeding. As above, will keep a close eye on her counts as she proceeds with chemotherapy treatment. 3. Attention deficit hyperactivity disorder. The patient reports she will take her Ritalin p.r.n. during the hospitalization as she does not want to mask fatigue. 4. Fluid/electrolyte/nutrition. The patient has a good appetite. She wishes to defer a Nutrition consult. Her electrolytes are currently stable. 5. Deep vein thrombosis prophylaxis with Lovenox. This patient is high risk. Will give Lovenox. CODE STATUS: Patient is full code. DISPOSITION: Patient admitted to inpatient status, which will likely require greater than 48 hours hospitalization for inpatient chemotherapy. /[id number]/MODL MTDD
[2016-11-13] MEDS ORDERED: PALONOSETRON HCL 0.25 MG/5 ML VIAL IVP SCH (20:00)
[2016-11-13] MEDS ORDERED: diphenhydrAMINE 25 MG CAP PO ONE (20:41)
[2016-11-13] MEDS ORDERED: CISPLATIN IV SCH (22:00)
[2016-11-13] MEDS: LORazepam 0.5 MG TAB PO SCH (22:17)
[2016-11-13] MEDS: OLANZapine 2.5 MG TAB PO SCH (22:18)
[2016-11-13] MEDS: POTASSIUM CL IV SCH (23:10)
[2016-11-13] MEDS: NS IV SCH (23:10)
[2016-11-13] MEDS: MAGNESIUM SULFATE IV SCH (23:10)
[2016-11-14] MEDS ORDERED: PALONOSETRON HCL 0.25 MG/5 ML VIAL IVP ONE (01:30)
[2016-11-14 05:37] LABS: % IMMATURE GRANULYOCYTES 0.6 % (0.0-1.1); ABSOLUTE IMMATURE GRANULOCYTES 0.05 10^3/uL (0.00-0.10); ADD DIFF? NO; ADD MORPH? NO; ADD SCAN? NO; ATYPICAL LYMPHOCYTE FLAG 0 (0-99); FRAGMENT RBC FLAG 0 (0-99); HEMATOCRIT 25.4 % (38.0-47.0); HEMOGLOBIN 8.1 g/dL (12.6-16.3); LEFT SHIFT FLG 0 (0-99); LIPEMIA HEMOLYSIS FLAG 80 (0-99); MEAN CELL HEMOGLOBIN 32.8 pg (27.9-34.1); MEAN CELL HEMOGLOBIN CONCENTR. 31.9 g/dL (32.4-36.7); MEAN CELL VOLUME 102.8 fL (81.5-99.8); MEAN PLATELET VOLUME 9.2 fL (8.7-11.7); PLATELET CLUMPS FLAG 0 (0-99); PLATELET COUNT 118 10^3/uL (150-400); RED BLOOD CELL COUNT 2.47 10^6/uL (4.18-5.33); RED CELL DISTRIBUTION WIDTH 17.2 % (11.5-15.2)
[2016-11-14] MEDS ORDERED: DEXAMETHASONE 0.1% 5 ML OPHT.BTL EACHEYE SCH (09:00)
[2016-11-14] MEDS ORDERED: NON-FORMULARY NEW DRUG (Omeprazole Magnesium [Prilosec Otc] 20 MG) PO SCH (09:00)
[2016-11-14] MEDS ORDERED: prednisoLONE ACET 1% 5 ML OPHT.BTL EACHEYE SCH (09:00)
[2016-11-14] MEDS: DEXAMETHASONE 4 MG TAB PO SCH (10:05)
[2016-11-14] MEDS: PANTOPRAZOLE SODIUM 40 MG TAB PO SCH (10:05)
[2016-11-14] MEDS: lamoTRIgine 100 MG TAB PO SCH (10:05)
[2016-11-14] MEDS: ENOXAPARIN 40 MG/0.4 ML SYR SC SCH (10:09)
[2016-11-14] MEDS: buPROPion SR 150 MG TAB PO SCH (10:10)
[2016-11-14] MEDS: Armodafinil [Nuvigil 250mg] 250 MG PO SCH (10:13)
--- NOTE | 2016-11-14 12:01 | GCON ---
[f rep st] CONSULTATION HISTORY OF PRESENT ILLNESS: The patient is a very pleasant, 51-year-old female who was diagnosed with a mantle cell lymphoma in July of 2016. This was initially staged as IV A. She presented with weight loss. Crampy, abdominal pain. Was found to have significant splenomegaly as well as bulky adenopathy in the mesentery and retroperitoneal space. Biopsy was consistent with mantle cell lymphoma, which expressed Cyclin D1, and had 03/2014 translocation. She has been treated with R-CHOP alternating with R-DHAP and is admitted now for her final cycle of R-DHAP. She is felt to be in a good partial remission. She feels well at this time. She is scheduled for a possible stem cell transplant in the relatively near future. PAST MEDICAL HISTORY: Significant for depression. She is para 2. She is a nurse at [employer]. FAMILY HISTORY: Father had lymphoma and mother of multiple myeloma. PHYSICAL EXAMINATION: GENERAL/VITAL SIGNS: Today, she is a very pleasant, alert female. Blood pressure 96/61. She is afebrile. She is not icteric. She has expected alopecia. LUNGS: Clear. There is a port in the right chest. CARDIAC: Unremarkable. ABDOMEN: Benign. EXTREMITIES: Unremarkable. NEUROLOGIC: Nonfocal. LAB: White count 8.77, hemoglobin 8.1, hematocrit 25.4, platelets are 118,000. As of 11/13, her sodium was 138, potassium 3.8, creatinine 0.7. IMPRESSION: Mantle cell lymphoma. Admitted for R-DHAP. She does have anemia, which is chemotherapy related. She does not require transfusion at this point in time. She will require close follow up with Dr. Aldrich post discharge and should receive colony-stimulating factor. /[id number]/MODL MTDD
[2016-11-14] MEDS: DEXAMETHASONE 0.1% 5 ML OPHT.BTL EACHEYE SCH ×2 (13:26→18:43)
--- NOTE | 2016-11-14 13:29 | HOSPPROG ---
Hospitalist Progress Note Assessment/Plan: # Mantle Cell lymphoma - tolerating chemotherapy thus far - no nausea overnight EKG (personally reviewed and interpreted) Sinus rhythm - continue current chemotherapy regimen per Oncology - receiving steroids per protocol - tolerating p.o. or not requiring supplemental IV fluids # attention deficit hyperactivity disorder- patient typically takes extended release Ritalin which is non formulary - started methylphenidate 20 twice daily short-acting # macrocytic anemia- secondary to chemotherapy continue to monitor- hemoglobin 8- oxygen saturations 98% on room air - no need for transfusion today # acute hypotension- systolic blood pressures ranging 70-90 systolic today- patient asymptomatic taking excellent p.o. - continue to encourage p.o. intake - continue monitoring for fever or other signs of infection # prophylaxis Lovenox # diet regular # disposition greater than 2 midnights as the patient needs to complete chemotherapy regiment in the next 24 hours have discussed case with the Pharm D- expect infusions to finish tomorrow morning Subjective: feeling well Objective: Vital Signs Temp Pulse Resp BP Pulse Ox 36.5 C 82 16 96/61 L 98 11/14/16 07:56 11/14/16 07:56 11/14/16 07:56 11/14/16 08:10 11/14/16 07:56 Laboratory Results 11/14/16 05:11 11/13/16 11/14/16 11/15/16 05:59 05:59 05:59 Intake Total 900 260 Output Total 700 1000 Balance 200 -740 - Physical Exam Constitutional: appears nourished Eyes: anicteric sclera Ears, Nose, Mouth, Throat: moist mucous membranes Cardiovascular: regular rate and rhythym, no murmur, rub, or gallop Respiratory: no respiratory distress, no rales or rhonchi Gastrointestinal: normoactive bowel sounds, soft, non-tender abdomen Genitourinary: no bladder fullness Skin: warm, normal color Musculoskeletal: No asymmetric calves Neurologic: AAOx3 Psychiatric: interacting appropriately, not anxious Lymph, Heme, Immunologic: no cervical LAD ICD10 Worksheet Patient Problems: Problems Problem Status Onset Mantle cell lymphoma of intra-abdominal lymph nodes Chronic
[2016-11-14] MEDS ORDERED: NS IV SCH (22:00)
[2016-11-14] MEDS ORDERED: MAGNESIUM SULFATE IV SCH (22:00)
[2016-11-14] MEDS ORDERED: POTASSIUM CL IV SCH (22:00)
[2016-11-14] MEDS: OLANZapine 2.5 MG TAB PO SCH (22:00)
[2016-11-14] MEDS: LORazepam 0.5 MG TAB PO SCH (22:01)
[2016-11-14] MEDS: NS IV SCH (23:12)
[2016-11-14] MEDS: POTASSIUM CL IV SCH (23:12)
[2016-11-14] MEDS: MAGNESIUM SULFATE IV SCH (23:12)
[2016-11-15] MEDS: DEXAMETHASONE 0.1% 5 ML OPHT.BTL EACHEYE SCH ×3 (00:18→19:44)
[2016-11-15] MEDS: LORazepam 0.5 MG TAB PO PRN ×2 (00:21→17:12)
[2016-11-15] MEDS: NS IV SCH ×2 (03:57→15:24)
[2016-11-15] MEDS: CYTARABINE IV SCH ×2 (03:57→15:24)
[2016-11-15 06:28] LABS: HEMATOCRIT 24.8 % (38.0-47.0); MEAN CELL HEMOGLOBIN 33.5 pg (27.9-34.1); MEAN CELL HEMOGLOBIN CONCENTR. 32.3 g/dL (32.4-36.7); MEAN CELL VOLUME 103.8 fL (81.5-99.8); RED BLOOD CELL COUNT 2.39 10^6/uL (4.18-5.33); RED CELL DISTRIBUTION WIDTH 17.1 % (11.5-15.2)
[2016-11-15 06:55] LABS: ANION GAP 6 mEq/L (8-16); CALCIUM 8.8 mg/dL (8.5-10.4); CARBON DIOXIDE 25 mEq/l (22-31); CHLORIDE 112 mEq/L (97-110); CREATININE 0.6 mg/dL (0.6-1.0); GLOMERULAR FILTRATION RATE > 60; GLUCOSE 102 mg/dL (70-100); SODIUM 143 mEq/L (134-144)
[2016-11-15] MEDS: DEXAMETHASONE 4 MG TAB PO SCH (10:35)
[2016-11-15] MEDS: PANTOPRAZOLE SODIUM 40 MG TAB PO SCH (10:37)
[2016-11-15] MEDS: Armodafinil [Nuvigil 250mg] 250 MG PO SCH (10:38)
[2016-11-15] MEDS: ENOXAPARIN 40 MG/0.4 ML SYR SC SCH (10:39)
[2016-11-15] MEDS: buPROPion SR 150 MG TAB PO SCH (10:39)
[2016-11-15] MEDS: lamoTRIgine 100 MG TAB PO SCH (10:48)
[2016-11-15 11:50] VITALS: RESP 18
--- NOTE | 2016-11-15 12:10 | SOAPPROG ---
BLACK Progress Note Assessment/Plan: Assessment: 1. Mantle cell lymphoma, now day 3 after cycle 6 of chemo (R-DHAP) 2. Anemia due to chemo Plan: - ok to d/c to home today after last dose of chemo - will go to clinic tomorrow for Neulasta - continue pred-forte eyedrops until tomorrow evening - last dose of dex 40 mg is tomorrow (daily) - f/u with Dr. Aldrich in clinic on Monday 11/20 - pt plans to proceed with autologous stem cell transplant for consolidation - not sure if at [facility] or [facility] 25 min spent w/ pt and in coordination of care. 11/15/16 12:10 Subjective: feels well. somewhat restless due to dexamethasone. Objective: exam: NAD OP clear Lungs CTAB CV RRR no MGR Abd: +BS NT ND Ext: no edema neuro: no ataxia Vital Signs Temp Pulse Resp BP Pulse Ox 37.0 C 81 18 122/75 H 98 11/15/16 11:50 11/15/16 11:50 11/15/16 11:50 11/15/16 11:50 11/15/16 11:50 Laboratory Results 11/15/16 06:25 11/15/16 06:25 11/14/16 11/15/16 11/16/16 05:59 05:59 05:59 Intake Total 900 5073 350 Output Total 700 4625 500 Balance 200 448 -150 ICD10 Worksheet Patient Problems: Problems Problem Status Onset Mantle cell lymphoma of intra-abdominal lymph nodes Chronic
--- NOTE | 2016-11-15 12:20 | GDS ---
[f rep st] DISCHARGE SUMMARY DISCHARGE DIAGNOSES: 1. Mantle cell lymphoma, receiving active chemotherapy. 2. Attention deficit hyperactivity disorder. 3. Mood disorder. 4. Chemotherapy induced nausea. 5. Anemia and thrombocytopenia, chemotherapy-induced. HISTORY OF PRESENT ILLNESS: A 51-year-old female who presents for elective chemotherapy for her man tle cell lymphoma. For details of patient's initial presentation, please see the history and physic al dated 11/13/2016. CONSULTATIVE SERVICES: Oncology. PROCEDURES: Chemotherapy. HOSPITAL COURSE: 1. Mantle cell lymphoma, receiving chemotherapy: Patient is completing the final infusions of this round of chemotherapy at this time and has tolerated the treatment without complication. At the co nclusion of her infusions this afternoon, patient will be discharged home with outpatient followup w yanet Aldrich. She does historically have some nausea related to her chemotherapy. She is being pr ovided with oral Ativan for treatment of this which, per her report, is the most effective. A presc ription has been e-prescribed to her outpatient pharmacy. Patient will be discharged with 1 day of 40 mg of dexamethasone and will initiate her eyedrops for post chemotherapy prophylaxis of her eyes. 2. Attention deficit hyperactivity disorder: The patient is being continued on her home dosing of methylphenidate. 3. Mood disorder: Patient is being continued on her home dosing of Zyprexa, Lamictal, and Wellbutr in. MEDICATIONS AT THE TIME OF DISPOSITION: Please reference the med rec printed on 11/15/2016. PENDING STUDIES: At the time of this dictation are none. FOLLOWUP APPOINTMENTS: Include with Dr. Aldrich on 11/20/2016. /[id number]/MODL
[2016-11-15 17:19] VITALS: BP 117/76; PULSE 92; TEMP 98.4; O2SAT 96
== END 2016-11-15 18:40 | disposition home or self-care (01) | DRG 847 ==
LOC: F1N 12:46
PROVIDERS: ADMIT Hospitalist; ATTEND Hospitalist
DX: Z51.11 Encounter for antineoplastic chemotherapy (principal); C83.13 Mantle cell lymphoma, intra-abdominal lymph nodes; F90.9 Attention-deficit hyperactivity disorder, unspecified type; F39 Unspecified mood [affective] disorder; D64.81 Anemia due to antineoplastic chemotherapy
CPT/HCPCS: J1642; J1650; J2469; J9060; J9100; J9310

== ENCOUNTER → 2016-11-24 | Outpatient (CLI) | payer OTHER ==
[~2016-11-24] MED LIST: ACETAMINOPHEN 325 MG TAB PO ONE; diphenhydrAMINE 25 MG CAP PO ONE
== END ==
LOC: EDSTATUS 14:00 → FOBOP 17:26
PROVIDERS: ATTEND Internal Medicine Hematology & Oncology
PROC: 30233R1 Transfusion of Nonautologous Platelets into Peripheral Vein, Percutaneous Approach (ICD-10-PCS; principal; 2016-11-24)
DX: C83.10 Mantle cell lymphoma, unspecified site (principal)
CPT/HCPCS: 36430; P9037; J1642

== ENCOUNTER → 2016-11-28 | Outpatient (CLI) | payer OTHER ==
[~2016-11-28] MED LIST changes: -diphenhydrAMINE 25 MG CAP PO ONE
[2016-11-28 13:03] VITALS: BP 123/76; PULSE 86; RESP 18; TEMP 99.2
== END ==
LOC: FOBOP 11:56 → EDSTATUS 17:00
PROVIDERS: ATTEND Internal Medicine Hematology & Oncology
PROC: 30233N1 Transfusion of Nonautologous Red Blood Cells into Peripheral Vein, Percutaneous Approach (ICD-10-PCS; principal; 2016-11-28)
PROC: 30233R1 Transfusion of Nonautologous Platelets into Peripheral Vein, Percutaneous Approach (ICD-10-PCS; principal; 2016-11-28)
DX: C85.90 Non-Hodgkin lymphoma, unspecified, unspecified site (principal)
CPT/HCPCS: 36430; P9037; P9040; J1200; J1642; P9016

== ENCOUNTER 2017-04-21 13:03 | Emergency (ER) | payer OTHER ==
--- NOTE | 2017-04-21 13:22 | EDPHY ---
H & P Stated Complaint: hx of mantel cell lymphoma on calquence with low platelets/ petechia Time Seen by Provider: 04/21/17 13:20 - Personal History LMP (Females 10-55): Post Menopausal Current Tetanus/Diphtheria Vaccine: Unsure - Medical/Surgical History Hx Asthma: No Hx Chronic Respiratory Disease: No Hx Diabetes: No Hx Cardiac Disease: No Hx Renal Disease: No Hx Cirrhosis: No Hx Alcoholism: No Hx HIV/AIDS: No Hx Splenectomy or Spleen Trauma: No Other PMH: Csections. ADD. Depression, mante cell lymphoma - Social History Smoking Status: Never smoked Constitutional: Initial Vital Signs Temperature (C) 36.4 C 04/21/17 13:08 Heart Rate 113 H 04/21/17 13:08 Respiratory Rate 20 04/21/17 13:08 Blood Pressure 110/70 04/21/17 13:08 O2 Sat (%) 99 04/21/17 13:08 O2 Delivery Mode Room Air Allergies/Adverse Reactions: rotuxin Adverse Reaction (Uncoded 04/21/17 13:07) Home Medications: Medication Instructions Recorded Omeprazole Magnesium [Prilosec Otc] 20 mg PO DAILY 08/21/16 lamoTRIgine [Lamictal] 100 mg PO DAILY 08/21/16 Armodafinil [Nuvigil 250mg] 250 mg PO DAILY 11/13/16 Dexamethasone 0.1% [Dexamethasone 1 drops EACHEYE DAILY 11/13/16 0.1% (*)] Methylphenidate HCl 40 mg PO BID@09,14 11/13/16 [Methylphenidate HCl ER] OLANZapine [ZyPREXA 2.5 mg (*)] 5 mg PO HS 11/13/16 buPROPion SR [Wellbutrin 150mg SR 150 - 300 mg PO DAILY 11/13/16 (*)] prednisoLONE ACET 1% [Pred Forte 1 drops EACHEYE DAILY 11/13/16 1% (*)] Dexamethasone [Decadron 4 MG (*)] 40 mg PO DAILY #10 tab 11/15/16 LORazepam [Ativan (*)] 1 mg PO Q6-8PRN PRN #60 tab 11/15/16 Adderall 10 MG (*) 04/21/17 Calquence 04/21/17 Medical Decision Making ED Course/Re-evaluation: CHIEF COMPLAINT: Petechiae HISTORY OF PRESENT ILLNESS: 51-year-old female who is being treated for lymphoma. I received a call from Med Harper from Oncology. This patient has developed some small petechiae and has a known low platelet count. She has had platelet transfusions after having critically low platelet levels several times. On 04/12/17, 1.5 weeks ago , she started a new chemotherapy treatment. Denies scratching her leg. Denies other spontaneous bleeding, trauma, recent injury, paresthesias, fever or other pertinent symptoms. REVIEW OF SYSTEMS: A 10 point review of systems was performed and is negative with the exception of the elements mentioned in the history of present illness. PHYSICAL EXAM: HR, BP, O2 Sat, RR. Temp noted General Appearance: Alert, well hydrated, appropriate, and non-toxic appearing. Head: Atraumatic without scalp tenderness or obvious injury Eyes: Pupils equal, round, reactive to light and accommodation, EOMI, no trauma , no injection. Ears: Clear bilaterally, no perforation, normal landmarks Nose: Atraumatic, no rhinorrhea, clear. Throat: Mucus membranes moist. Neck: Supple, nontender, no lymphadenopathy. Respiratory: No retractions, no distress, no wheezes, and no accessory muscle use. Lungs are clear to auscultation bilaterally. Cardiovascular: Regular rate and rhythm, no murmurs, rubs, or gallops. Bilateral carotid, radial, dorsalis pedis, and posterior tibial pulses intact. Good capillary refill all extremities. Gastrointestinal: Abdomen is soft, nontender, non-distended, no masses, no rebound, no guarding, no peritoneal signs. Musculoskeletal: Normal active ROM of all extremities, atraumatic. Neurological: Alert, appropriate, and interactive. Non-focal neuro Skin: Petechia on left neck and left anterior thigh. Good turgor, no nodules on palpation. Past medical history: Mantel cell lymphoma, ADD, depression Past surgical history: C-sections Family history: Denies Social history: Lives in [place], single, works for [employer] DIFFERENTIAL DIAGNOSIS: The differential diagnosis included but was not limited to low platelet count, angioedema, anaphylactoid reaction, urticarial reaction, and other infectious causes for skin rash. MEDICAL DECISION MAKING: The patient is a 51 y/o female with a history of Mantel cell lymphoma, presenting with petechia on her left neck and left anterior thigh. She has a history of low platelet counts and has required platelet transfusions several times. 1422: Patient has a platelet count of 41, I do not believe she will need a platelet transfusion. She is a potential candidate for a stem cell transplant and I would only want to transfuse blood products if it is absolutely needed. Plan on consulting with Dr. Harper, oncologist, to see if the patient should have a platelet transfusion. 1502: Consulted with Dr. Harper, oncologist, he does not recommend that this patient receives a platelet transfusion. 1505: Reassessed patient and discussed laboratory findings. She will be discharged with thrombocytopenia and petechiae. I have advised her to follow up with her oncologist in the next week. Return precautions provided; patient is comfortable with this plan. - Data Points Laboratory Results: Laboratory Results 04/21/17 13:36 04/21/17 13:45 04/21/17 04/21/17 04/21/17 13:45 13:45 13:36 WBC 1.85 10^3/uL L 10^3/uL (3.80-9.50) RBC 2.78 10^6/uL L 10^6/uL (4.18-5.33) Hgb 10.4 g/dL L g/dL (12.6-16.3) Hct 29.7 % L % (38.0-47.0) MCV 106.8 fL H fL (81.5-99.8) MCH 37.4 pg H pg (27.9-34.1) MCHC 35.0 g/dL g/dL (32.4-36.7) RDW 12.2 % % (11.5-15.2) Plt Count 41 10^3/uL L 10^3/uL (150-400) MPV 10.5 fL fL (8.7-11.7) Neut % (Auto) Not Reported Lymph % (Auto) Not Reported [place] % (Auto) Not Reported Eos % (Auto) Not Reported Baso % (Auto) Not Reported Nucleat RBC Rel Count 0.0 % % (0.0-0.2) Absolute Neuts (auto) Not Reported Absolute Lymphs (auto) Not Reported Absolute Monos (auto) Not Reported Absolute Eos (auto) Not Reported Absolute Basos (auto) Not Reported Absolute Nucleated RBC 0.00 10^3/uL 10^3/uL (0-0.01) Immature Gran % Not Reported Seg Neutrophils % 58 % % Band Neutrophils % 2 % % Lymphocytes % 32 % % Monocytes % 5 % % Eosinophils % 2 % % Basophils % 1 % % Immature Gran # Not Reported Absolute Seg Neuts 1.07 10^/uL L 10^/uL (1.70-6.50) Absolute Band Neuts 0.04 10^3/uL 10^3/uL (0.00-0.70) Absolute Lymphocytes 0.59 10^3/uL L 10^3/uL (1.00-3.00) Absolute Monocytes 0.09 10^3/uL L 10^3/uL (0.30-0.80) Absolute Eosinophils 0.04 10^3/uL 10^3/uL (0.03-0.40) Absolute Basophils 0.02 10^3/uL 10^3/uL (0.02-0.10) Platelet Estimate DECREASED L (ADEQ) Oval Macrocytes 1+ H PT 13.9 SEC SEC (12.0-15.0) INR 1.05 (0.83-1.16) APTT 39.6 SEC H SEC (23.0-38.0) Sodium 137 mEq/L mEq/L (134-144) Potassium 4.2 mEq/L mEq/L (3.5-5.2) Chloride 103 mEq/L mEq/L (97-110) Carbon Dioxide 24 mEq/l mEq/l (22-31) Anion Gap 10 mEq/L mEq/L (8-16) BUN 17 mg/dL mg/dL (7-23) Creatinine 0.9 mg/dL mg/dL (0.6-1.0) Estimated GFR > 60 Glucose 121 mg/dL H mg/dL (70-100) Calcium 9.3 mg/dL mg/dL (8.5-10.4) Departure - Departure Disposition: Home, Routine, Self-Care Clinical Impression: Petechiae, Thrombocytopenia Condition: Good Instructions: Thrombocytopenia (ED) Additional Instructions: 1. Follow up with your oncologist in the next week. 2. Return to the ED if you experience chest pain, shortness of breath, numbness , weakness, spontaneous bleeding or other worsening of your condition. Referrals: Med Harper MD [Medical Doctor] - As per Instructions Report Scribed for: Jorge Peoples Report Scribed by: Korin Larsen Date of Report: 04/21/17 Time of Report: 13:23
[2017-04-21 14:15] LABS: ADD DIFF? YES; ADD MORPH? NO; ADD SCAN? NO; ATYPICAL LYMPHOCYTE FLAG 10 (0-99); FRAGMENT RBC FLAG 0 (0-99); HEMATOCRIT 29.7 % (38.0-47.0); HEMOGLOBIN 10.4 g/dL (12.6-16.3); LEFT SHIFT FLG 10 (0-99); LIPEMIA HEMOLYSIS FLAG 90 (0-99); MEAN CELL HEMOGLOBIN 37.4 pg (27.9-34.1); MEAN CELL VOLUME 106.8 fL (81.5-99.8); MEAN PLATELET VOLUME 10.5 fL (8.7-11.7); PLATELET CLUMPS FLAG 10 (0-99); RED BLOOD CELL COUNT 2.78 10^6/uL (4.18-5.33); RED CELL DISTRIBUTION WIDTH 12.2 % (11.5-15.2)
[2017-04-21 14:19] LABS: PLATELET COUNT 41 10^3/uL (150-400)
[2017-04-21 14:26] LABS: INR 1.05 (0.83-1.16); PROTIME(PATIENT) 13.9 SEC (12.0-15.0)
[2017-04-21 14:27] LABS: APTT 39.6 SEC (23.0-38.0)
[2017-04-21 14:47] LABS: ANION GAP 10 mEq/L (8-16); CALCIUM 9.3 mg/dL (8.5-10.4); CARBON DIOXIDE 24 mEq/l (22-31); CHLORIDE 103 mEq/L (97-110); CREATININE 0.9 mg/dL (0.6-1.0); GLOMERULAR FILTRATION RATE > 60; GLUCOSE 121 mg/dL (70-100); POTASSIUM 4.2 mEq/L (3.5-5.2); SODIUM 137 mEq/L (134-144)
[2017-04-21 14:56] LABS: MACROCYTES 1+; PLATELET ESTIMATE DECREASED (ADEQ)
[2017-04-21 15:35] VITALS: BP 106/65; PULSE 71; RESP 18; TEMP 98.4; O2SAT 97
== END 2017-04-21 15:35 | disposition home or self-care (01) ==
DX: R23.3 Spontaneous ecchymoses (principal)

== ENCOUNTER → 2017-06-05 | Outpatient (CLI) | payer OTHER ==
[~2017-06-05] MED LIST changes: -ACETAMINOPHEN 325 MG TAB PO ONE; +PENTAMIDINE ISETHIONATE 300MG/6ML INH SYRINGE NEB ONE
== END ==
LOC: FCP 07:54
PROVIDERS: ATTEND Internal Medicine Hematology & Oncology
PROC: 3E0F7GC Introduction of Other Therapeutic Substance into Respiratory Tract, Via Natural or Artificial Opening (ICD-10-PCS; principal; 2017-06-05)
DX: D69.6 Thrombocytopenia, unspecified (principal); C85.90 Non-Hodgkin lymphoma, unspecified, unspecified site
CPT/HCPCS: J2545

== ENCOUNTER → 2017-07-03 | Outpatient (CLI) | payer OTHER | LOC: FCP 08:20 | PROVIDERS: ATTEND Internal Medicine Hematology & Oncology | DX: C85.90 Non-Hodgkin lymphoma, unspecified, unspecified site (principal); Z79.899 Other long term (current) drug therapy | CPT/HCPCS: J2545 ==

== ENCOUNTER 2018-03-15 15:41 | Outpatient (CLI) | payer OTHER ==
[2018-03-15] MEDS ORDERED: ACETAMINOPHEN 325 MG TAB PO ONE (16:00)
[2018-03-15] MEDS ORDERED: diphenhydrAMINE 25 MG CAP PO ONE (16:00)
== END 2018-03-15 17:15 | disposition home or self-care (01) ==
LOC: FOBOP 15:41
PROVIDERS: ATTEND Internal Medicine Hematology & Oncology
PROC: 30233R1 Transfusion of Nonautologous Platelets into Peripheral Vein, Percutaneous Approach (ICD-10-PCS; principal; 2018-03-15)
DX: C83.10 Mantle cell lymphoma, unspecified site (principal)
CPT/HCPCS: 36430; P9073; J1642